=== PATIENT | female | born 1955 | race Caucasian/White ===

== ENCOUNTER 2023-11-22 21:50 | Emergency (ER) | payer BC, MEDICAID ==
[~2023-11-22] VITALS: Ht 172.7 cm; Wt 55.3 kg
[2023-11-22] MEDS ORDERED: IBUPROFEN 600 MG TABLET ONE (23:08)
[2023-11-22] MEDS: IBUPROFEN 600 MG TABLET PO ONE (23:09)
[2023-11-23 01:36] VITALS: BP 128/72; TEMP 98.4; O2SAT 100
== END 2023-11-23 01:37 | disposition home or self-care (01) ==
LOC: ER 21:57
DX: S52.122A Displaced fracture of head of left radius, initial encounter for closed fracture (principal); F17.200 Nicotine dependence, unspecified, uncomplicated; W01.0XXA Fall on same level from slipping, tripping and stumbling without subsequent striking against object, initial encounter; Y93.89 Activity, other specified; Y92.89 Other specified places as the place of occurrence of the external cause; Y99.8 Other external cause status
CPT/HCPCS: 73080-TC; 73090-TC; 73130-TC